=== PATIENT | male | born 1945 | race Caucasian/White ===

== ENCOUNTER → 2020-01-08 10:03 | Outpatient (CLI) | payer MEDICARE ==
[2016-03-20 11:48] VITALS: BMI 28.8
[~2020-01-08 10:03] MED LIST: ASPIRIN325 MG PO; CARDIZEM120 MG PO; FUROSEMIDE20 MG PO; GLIPIZIDE10 MG PO; GLUCOPHAGE1000 MG PO; INVOKANA100 MG PO; ISOSORBIDE MONO60 M1 PO; LIPITOR10 MG PO; PLAVIX75 MG PO; POTASSIUM CHLO10 ME1 PO; RANEXA500 MG PO; TENORMIN50 MG PO; ZESTRIL40 MG PO
[2020-01-08 13:09] LABS: HEMATOCRIT 34.6 % (42.0-54.0); HEMOGLOBIN 11.2 g/dL (13.5-17.5); MCH 28.4 pg (26.0-34.0); MCHC 32.4 g/dL (31.0-37.0); MCV 87.8 fL (80.0-100.0); MEAN PLATELET VOLUME 10.5 fL (7.4-10.4); RBC 3.94 10x6/uL (4.20-6.10); RDW 18.9 % (11.5-14.5)
[2020-01-08 13:18] LABS: ALBUMIN 3.4 g/dL (3.4-5.0); ANION GAP 16.3 mmol/L (8-16); BILIRUBIN - TOTAL 0.47 mg/dL (0.2-1.3); CALCIUM 8.4 mg/dL (8.5-10.1); CHOL - HDL RATIO 2.7 ratio (2.3-4.9); CREATININE - SERUM 3.5 mg/dL (0.6-1.3); LDL-HDL RATIO 1.1 ratio (1.5-3.5); PROTEIN - SERUM 7.1 g/dL (6.4-8.2)
[2020-01-08 13:21] LABS: PLATELET COUNT 225 10x3/uL (130-400)
[2020-01-08 13:25] LABS: POTASSIUM - SERUM 6.3 mmol/L (3.5-5.1)
[2020-01-08 13:55] LABS: ANISOCYTOSIS OCC; CRENATED CELLS OCC; LYMPHOCYTES 22 % (15-50); MONOCYTES 7 % (2-11); NEUTROPHILS 70 % (40-80); PLATELET ESTIMATE NORMAL
== END | disposition home or self-care (01) ==
LOC: D.LABREF 10:03
PROVIDERS: ATTEND Legal Medicine
DX: I12.9 Hypertensive chronic kidney disease with stage 1 through stage 4 chronic kidney disease, or unspecified chronic kidney disease (principal); E11.22 Type 2 diabetes mellitus with diabetic chronic kidney disease; N18.1 Chronic kidney disease, stage 1; E78.2 Mixed hyperlipidemia